=== PATIENT | male | born 2000 | race African-American/Black ===

== ENCOUNTER 2022-05-08 19:19 | Emergency (ER) | payer MEDICAID ==
[~2022-05-08] VITALS: Ht 165.1 cm; Wt 46.7 kg
[2022-05-08 20:38] LABS: Albumin 5.2 g/dL (3.4-5.0); BUN/Creatinine Ratio 5.9; Potassium 3.5 mmol/L (3.5-5.1)
[2022-05-08 20:40] LABS: Bilirubin, Total 0.9 mg/dL (0.2-1.0); Total Protein 9.1 g/dL (6.4-8.2)
[2022-05-08 20:53] LABS: Urine Bacteria NONE SEEN /hpf (None Seen); Urine Blood Negative /uL (Negative); Urine Mucus FEW (None Seen); Urine Specific Gravity 1.025 (1.001-1.035); Urine WBC 1 /hpf (0 - 3)
[2022-05-08 20:58] LABS: Basophils # (auto) 0 10 ^3/uL (0-0.2); Eosinophils # (auto) 0 10 ^3/uL (0-0.8); Hemoglobin 16.3 g/dL (13.5-17.5); Lymphocytes # (auto) 1.2 10 ^3/uL (0.4-5.4); Mean Corpuscular Hemoglobin 27.1 pg (28.0-32.0); Mean Corpuscular Volume 81.7 fL (80.0-100.0); Monocytes # (auto) 0.4 10 ^3/uL (0-1.3); Neutrophils # (auto) 4.8 10 ^3/uL (1.6-8.6); White Blood Cell 6.5 10^3/uL (4.4-10.8)
[2022-05-08 21:00] LABS: Basophils % (auto) 0.5 % (0.0-2.0); Eosinophils % (auto) 0.2 % (0.0-7.0); Lymphocytes % (auto) 18.1 % (10.0-50.0); Mean Corpuscular Hgb Conc. 33.2 g/dL (32.0-36.0); Monocytes % (auto) 6.7 % (0.0-12.0); Neutrophils % (auto) 74.5 % (37.0-80.0); Nucleated Red Blood Cells % 0.3 %; Red Cell Distribution Width 13.8 % (11.8-14.3)
[2022-05-09] MEDS ORDERED: HYDROcodone-ACET 10/325MG TAB PO ONE (03:00)
[2022-05-09] MEDS ORDERED: ONDANSETRON ODT 4 MG TAB PO ONE (03:00)
[2022-05-09 03:59] VITALS: BP 132/73
== END 2022-05-09 04:03 | disposition home or self-care (01) ==
LOC: ER 19:19
DX: R10.31 Right lower quadrant pain (principal); G43.D0 Abdominal migraine, not intractable; R07.89 Other chest pain
CPT/HCPCS: 36415; 71046; 74176; 80053; 81001; 85025; 99285; Q0162